=== PATIENT | female | born 1990 | race Caucasian/White ===

== ENCOUNTER 2017-03-21 16:08 | Outpatient (CLI) | payer MEDICAID ==
[~2017-03-21] VITALS: Ht 160 cm; Wt 76.9 kg
[~2017-03-21 16:08] MED LIST: IBUP-1542 PO; PREN1TAB49 PO
[2017-03-21 16:18] VITALS: Ht 160 cm; Wt 76.9 kg
[2017-03-21 16:19] VITALS: RESP 19
[2017-03-21] MEDS: LACTATED RINGER'S 1,000 ML IV SCH ×2 (16:46→19:42)
[2017-03-21] MEDS ORDERED: TERBUTALINE 1 ML ONE (16:50)
[2017-03-21] MEDS ORDERED: TERBUTALINE 1 MG/ML INJ SC ONE ×2 (17:00→18:30)
[2017-03-21 17:21] LABS: ABNORMAL IP MESSAGE 1; BASOPHILS % 0.4 % (0.0-2.0); EOSINOPHILS # 0.1 10^3/ul (0.0-0.5); EOSINOPHILS % 0.6 % (0.0-7.0); HEMATOCRIT 33.2 % (37.0-47.0); HEMOGLOBIN 11.2 g/dl (12.0-16.0); LYMPHOCYTES % 24.8 % (15.0-51.0); MEAN CORPUSCULAR HEMOGLOBIN 29.5 pg (29.0-33.0); MEAN CORPUSCULAR HGB CONC 33.7 g/dl (32.0-37.0); MEAN CORPUSCULAR VOLUME 87.4 fl (82.0-101.0); MEAN PLATELET VOLUME 12.8 fl (7.4-10.4); MONOCYTE # 0.5 10^3/ul (0.3-0.9); MONOCYTES % 5.8 % (0.0-11.0); NEUTROPHIL # 5.4 10^3/ul (1.6-7.5); NEUTROPHILS % 67.9 % (39.0-77.0); PLATELET COUNT 100 10^3/UL (140-415); RED CELL DISTRIBUTION WIDTH 14.4 % (11.5-14.5)
[2017-03-21 17:23] LABS: ADD UMIC NO; UR ASCORBIC ACID NEGATIVE (NEGATIVE); UR BILIRUBIN (Dip) NEGATIVE (NEGATIVE); UR BLOOD (Dip) NEGATIVE (NEGATIVE); UR CLARITY CLEAR (CLEAR); UR COLOR YELLOW (YELLOW); UR GLUCOSE (Dip) NEGATIVE (NEGATIVE); UR KETONES (Dip) 1+ mg/dL (NEGATIVE); UR LEUKOCYTE ESTERASE (Dip) NEGATIVE Leu/ul (NEGATIVE); UR NITRITE (Dip) NEGATIVE (NEGATIVE); UR SPECIFIC GRAVITY (Dip) 1.027 (1.003-1.030); UR TOTAL PROTEIN (Dip) NEGATIVE (NEGATIVE); UR UROBILINOGEN (Dip) NEGATIVE (NEGATIVE)
[2017-03-21 17:24] LABS: POSITIVE DIFF @See below
[2017-03-21] MEDS ORDERED: BETAMET NA PHOS/AC(6 MG/ML) 5ML INJ IM ONE (18:30)
--- NOTE | 2017-03-21 21:00 | PN ---
Triage Information Date/Time 03/21/17 Reason for visit: Uterine contractions Weeks of Gestation 35w2d /Para Diabetes: none Hypertention: none Additional information tachycardia at the clinic Objective Vital Signs Date Time Temp Pulse Resp B/P Pulse Ox O2 Delivery O2 Flow Rate FiO2 03/21/17 16:19 98.2 77 19 99 Room Air Heart Rate: 140's Contractions: >10 Minutes Apart Exam VE 1/long/high Results/Medications Result Diagram: 03/21/17 1650 Results 24 hrs Laboratory Tests Test 03/21/17 16:50 03/21/17 17:00 White Blood Count 8.0 # Red Blood Count 3.80 L Hemoglobin 11.2 L Hematocrit 33.2 L Mean Corpuscular Volume 87.4 Mean Corpuscular Hemoglobin 29.5 Mean Corpuscular Hemoglobin Concent 33.7 Red Cell Distribution Width 14.4 Platelet Count 100 L Mean Platelet Volume 12.8 H Neutrophils % 67.9 Lymphocytes % 24.8 Monocytes % 5.8 Eosinophils % 0.6 Basophils % 0.4 Nucleated Red Blood Cells % 0.0 Neutrophils # 5.4 Lymphocytes # 2.0 Monocytes # 0.5 Eosinophils # 0.1 Basophils # 0.0 Nucleated Red Blood Cells # 0.0 Urine Color YELLOW Urine Clarity CLEAR Urine pH 6.0 Urine Specific [place] 1.027 Urine Ketones 1+ H Urine Nitrite NEGATIVE Urine Bilirubin NEGATIVE Urine Urobilinogen NEGATIVE Urine Leukocyte Esterase NEGATIVE Urine Hemoglobin NEGATIVE Urine Glucose NEGATIVE Urine Total Protein NEGATIVE Medications Current Medications Lactated Ringer's (Lr) 1,000 ml @ 250 mls/hr Q4H IV Last administered on 03/21t 19:42; Admin Dose 250 MLS/HR; Start 03/21/17 at 16:40 Disposition: Discharge Assessment/Plan IUP 35w2d tachycardia resolved PTL PLAN RTH for 2nd dose of BMZ tomorrow increase fluid intake rest TAMANNA HUSSEIN MD Mar 21, 2017 21:00
--- NOTE | 2017-03-22 00:21 | TRIAGE ---
OB Triage Datetime Report Generated by CPN: 03/22/2017 00:21 Datetime: 03/21/2017 20:00 Labor Evaluation Frequency: IRREGULAR Monitor Mode: External Duration (sec)2399: 60 Quality: Mild Pattern: Normal: <= 5 Contractions in 10 Minutes Resting Tone [place]: Relaxed Heart Rate FHR Baseline Rate: 145 Monitor Mode: External US FHR Baseline Changes: No Baseline Change Variability: Moderate 6-25 bpm Accelerations: 15X15 Decelerations: None Category: Category I Datetime: 03/21/2017 19:14 Assessment Type: Triage Maternal Assessment Level of Consciousness: Fully Conscious DTR's/Clonus: DTRs 2+; No Clonus Headache: Denies Blurred Vision: No Respiratory Effort: Unlabored; Regular Rhythm; Equal Expansion Breath Sounds, Left: Clear and Equal Breath Sounds, Right: Clear and Equal Nausea/Vomiting: Denies RUQ Epigastric Pain: Denies Lower Extremities Edema: None Degree: None Upper Extremities Edema: None Degree: None Facial Edema: None Fall Risk Assessment History of Falling: (0) No Secondary Diagnosis: (0) No Ambulatory Aid: (0) Bedrest/Nurse Assist IV Therapy: (0) No Gait: (0) Normal/Bedrest/Immobile Mental Status: (0) Oriented to Own Ability Fall Score: 0 Fall Risk Score Definition: No Risk: No action required Pain Assessment Pain Scale: 2 Pain Presence: Intermittent Pain Type: Contraction Pain Location: Abdomen Pain Relief Measures: Comfort Measures Datetime: 03/21/2017 19:13 Stage of : OB Triage Maternal Assessment Level of Consciousness: Fully Conscious DTR's/Clonus: DTRs 1+ Headache: Denies Breath Sounds, Left: Clear and Equal Breath Sounds, Right: Clear and Equal Nausea/Vomiting: Denies RUQ Epigastric Pain: Denies Labor Evaluation Frequency: NONE Monitor Mode: External Resting Tone [place]: Relaxed Heart Rate FHR Baseline Rate: 135 Monitor Mode: External US Variability: Moderate 6-25 bpm Accelerations: 15X15 Decelerations: None Category: Category I Pain Assessment Pain Scale: 0 Pain Presence: None/Denies Pain Type: N/A Pain Goal: 3 Vaginal Exam Membrane Status: Intact Datetime: 03/21/2017 18:40 Stage of : OB Triage Maternal Assessment Level of Consciousness: Fully Conscious DTR's/Clonus: DTRs 1+ Headache: Denies Breath Sounds, Left: Clear and Equal Breath Sounds, Right: Clear and Equal Nausea/Vomiting: Denies RUQ Epigastric Pain: Denies Labor Evaluation Frequency: IRREGULAR Monitor Mode: External Duration (sec)2399: 40-50 Quality: Mild Pattern: Normal: <= 5 Contractions in 10 Minutes Resting Tone [place]: Relaxed Heart Rate FHR Baseline Rate: 135 Monitor Mode: External US Variability: Moderate 6-25 bpm Accelerations: 15X15 Decelerations: None Category: Category I Pain Assessment Pain Scale: 3 Pain Presence: Intermittent Pain Type: Cramping Pain Location: Back Pain Goal: 3 Vaginal Exam Membrane Status: Intact Datetime: 03/21/2017 18:20 Stage of : OB Triage Datetime: 03/21/2017 17:40 Stage of : OB Triage Maternal Assessment Level of Consciousness: Fully Conscious DTR's/Clonus: DTRs 1+ Headache: Denies Breath Sounds, Left: Clear and Equal Breath Sounds, Right: Clear and Equal Nausea/Vomiting: Denies RUQ Epigastric Pain: Denies Labor Evaluation Frequency: NONE Monitor Mode: External Resting Tone [place]: Relaxed Heart Rate FHR Baseline Rate: 135 Monitor Mode: External US Variability: Moderate 6-25 bpm Accelerations: 15X15 Decelerations: None Category: Category I Pain Assessment Pain Scale: 0 Pain Goal: 3 Vaginal Exam Membrane Status: Intact Datetime: 03/21/2017 16:46 Stage of : OB Triage Datetime: 03/21/2017 16:40 Stage of : OB Triage Maternal Assessment Level of Consciousness: Fully Conscious DTR's/Clonus: DTRs 1+ Headache: Denies Blurred Vision: No Respiratory Effort: Unlabored Breath Sounds, Left: Clear and Equal Breath Sounds, Right: Clear and Equal Nausea/Vomiting: Denies RUQ Epigastric Pain: Denies Facial Edema: None Labor Evaluation Frequency: 4-5 Monitor Mode: External Duration (sec)2399: 50-70 Quality: Mild Pattern: Normal: <= 5 Contractions in 10 Minutes Resting Tone [place]: Relaxed Heart Rate FHR Baseline Rate: 135 Monitor Mode: External US Variability: Moderate 6-25 bpm Accelerations: 15X15 Decelerations: None Category: Category I Pain Assessment Pain Scale: 5 Pain Presence: Intermittent Pain Type: Contraction Pain Location: Back Pain Goal: 3 Pain Relief Measures: Comfort Measures Vaginal Exam Membrane Status: Intact Datetime: 03/21/2017 16:16 EGA: 35.2 Datetime: 03/21/2017 16:08 Stage of : OB Triage Assessment Type: Triage Maternal Assessment Level of Consciousness: Fully Conscious DTR's/Clonus: DTRs 2+; No Clonus Headache: Denies Blurred Vision: No Respiratory Effort: Unlabored; Regular Rhythm; Equal Expansion Breath Sounds, Left: Clear and Equal Breath Sounds, Right: Clear and Equal Nausea/Vomiting: Denies RUQ Epigastric Pain: Denies Lower Extremities Edema: None Degree: None Upper Extremities Edema: None Degree: None Facial Edema: None Fall Risk Assessment History of Falling: (0) No Secondary Diagnosis: (0) No Ambulatory Aid: (0) Bedrest/Nurse Assist IV Therapy: (0) No Gait: (0) Normal/Bedrest/Immobile Mental Status: (0) Oriented to Own Ability Fall Score: 0 Fall Risk Score Definition: No Risk: No action required Datetime: 03/21/2017 15:59 Time of Arrival: 03/21/2017 15:59 Arrived By: Ambulatory Arrived From: Home Chief Complaint: PT CAME IN FROM CLINIC TO R/O PTL AND TACHYCARDIA Movement: Present Contractions: Denies/Absent Rupture of Membranes: Denies Vaginal Bleeding: None Vaginal Discharge: Denies Recent Sexual Intercouse: Denies Abdominal Trauma: Not Applicable Additional Patient Complaints: NONE Initial Plan: NST AND BPP ve and iv hydration (Annotations: Data stored by CPN on behalf of user)
== END 2017-03-21 20:33 | disposition home or self-care (01) ==
LOC: OBT 16:08 → L-D 16:11 → OBT 20:33
PROVIDERS: ATTEND Obstetrics & Gynecology
DX: O76 Abnormality in fetal heart rate and rhythm complicating labor and delivery (principal); Z3A.35 35 weeks gestation of pregnancy
CPT/HCPCS: 36415; 81003; 85025; 96361; 96372; J0702; J3105; J7120; Z7500; G0463

== ENCOUNTER 2017-03-22 18:44 | Outpatient (CLI) | payer MEDICAID ==
[~2017-03-22] VITALS: Ht 160 cm; Wt 78.8 kg
[2017-03-22 19:05] VITALS: BP 111/67; PULSE 95; RESP 18; Ht 160 cm; Wt 78.8 kg
[2017-03-22] MEDS ORDERED: BETAMET NA PHOS/AC(6 MG/ML) 5ML INJ IM ONE (19:30)
--- NOTE | 2017-03-22 19:38 | RADRPT ---
PROCEDURE: OB ultrasound for biophysical profile CLINICAL INDICATION: Contractions. TECHNIQUE: Multiple sonographic images of the gravid uterus performed. The images were reviewed on a PACS workstation. COMPARISON: 12/14/2016 FINDINGS: A single live intrauterine is identified with heart rate of 168 bpm. Fet us is in a cephalic presentation. Placenta is located fundal. Biophysical profile: breathing movement = 2/2 tone = 2/2 motion = 2/2 EL = 2/2 EL = 12.82 cm. IMPRESSION: 1. Single live intrauterine gestation. 2. Biophysical profile = 8/8. 3. EL = 12.82 cm. RPTAT: HMVK .Bret Swan MD, Date Time Electronically viewed and signed by .Bret Swan MD, MD on 03/22/2017 19:38 .K/
--- NOTE | 2017-03-22 20:15 | TRIAGE ---
OB Triage Datetime Report Generated by CPN: 03/22/2017 20:15 Datetime: 03/22/2017 19:01 Assessment Type: Triage Level of Consciousness: Fully Conscious DTR's/Clonus: DTRs 2+; No Clonus Headache: Denies Blurred Vision: No Respiratory Effort: Unlabored; Regular Rhythm; Equal Expansion Breath Sounds, Left: Clear and Equal Breath Sounds, Right: Clear and Equal Nausea/Vomiting: Denies RUQ Epigastric Pain: Denies Lower Extremities Edema: None Degree: None Upper Extremities Edema: None Degree: None Facial Edema: None History of Falling: (0) No Secondary Diagnosis: (0) No Ambulatory Aid: (0) Bedrest/Nurse Assist IV Therapy: (0) No Gait: (0) Normal/Bedrest/Immobile Mental Status: (0) Oriented to Own Ability Fall Score: 0 Fall Risk Score Definition: No Risk: No action required Datetime: 03/22/2017 19:00 Monitor Mode: External Monitor Mode: External US Datetime: 03/22/2017 18:59 Time of Arrival: 03/22/2017 18:35 EGA: 35.3 Arrived By: Ambulatory Arrived From: Home Chief Complaint: pt here for NST/BPP AND SECOND DOSE OF BETAMETHSONE Movement: Present Contractions: Denies/Absent Rupture of Membranes: Denies Vaginal Bleeding: None Vaginal Discharge: Denies Recent Sexual Intercouse: Denies Abdominal Trauma: Not Applicable Patient Complaints: None Time Provider Notified: 03/22/2017 19:03 Provider Notified: LAVERNE Initial Plan: NST/BPP/BETA Datetime: 03/21/2017 15:59 Patient Complaints: None
--- NOTE | 2017-03-22 22:09 | PN ---
Triage Information Date/Time March 22, 2017 Reason for visit: Received a second dose of steroids Weeks of Gestation 35 weeks and 3 days /Para 3 para 2 Diabetes: none Hypertention: none Additional information 26-year-old with IUP at 35 weeks and 3 days here today to receive a second dose of steroid shot due to risk of labor. Patient presented yesterday with complaint of contractions. Has been ruled out for labor. Received the first dose of steroid. Here today for second shot. She denies any cramps, decreased movement, vaginal bleeding or any other complaint. Objective Vital Signs Date Time Temp Pulse Resp B/P Pulse Ox O2 Delivery O2 Flow Rate FiO2 03/22/17 19:05 98.7 95 18 111/67 98 Room Air Heart Rate: 130's Heart Rate Comments Category 1 and reactive Exam General appearance: Alert and oriented 4. Does not appear to be in any acute distress Abdomen: Soft, gravid, fundal height consistent with gestational age Eczematous: No calf tenderness, no click no edema NST: Category 1. Reactive Contractions seen on the monitor BPP: 11/29 EL: 12.82 Results/Medications Imaging Results PROCEDURE: OB ultrasound for biophysical profile CLINICAL INDICATION: Contractions. TECHNIQUE: Multiple sonographic images of the gravid uterus performed. The images were reviewed on a PACS workstation. COMPARISON: 12/14/2016 FINDINGS: A single live intrauterine is identified with heart rate of 168 bpm. Fetus is in a cephalic presentation. Placenta is located fundal. Biophysical profile: breathing movement = 2/2 tone = 2/2 motion = 2/2 EL = 2/2 EL = 12.82 cm. IMPRESSION: 1. Single live intrauterine gestation. 2. Biophysical profile = 8/8. 3. EL = 12.82 cm. RPTAT: HMVK Disposition: Discharge Assessment/Plan IUP at 35 weeks and 3 days False labor pain resolved Today for second dose of steroid shot testing reassuring DC home Receive second dose Follow-up with OB office in 2-3 days or sooner as needed Return to triage as needed decreased movement, contractions or any other concerns SARA REYES MD Mar 22, 2017 22:09
== END 2017-03-22 22:23 | disposition home or self-care (01) ==
LOC: OBT 18:44 → L-D 18:45 → OBT 22:23
PROVIDERS: ATTEND Obstetrics & Gynecology
DX: O47.03 False labor before 37 completed weeks of gestation, third trimester (principal); Z3A.35 35 weeks gestation of pregnancy
CPT/HCPCS: 76818; J0702; G0463

== ENCOUNTER 2017-04-14 16:34 | Inpatient (IN) | payer MEDICAID, OTHER ==
[~2017-04-14] VITALS: Ht 160 cm; Wt 78.3 kg
[~2017-04-14 16:34] MED LIST changes: -IBUP-1542 PO
[2017-04-14 17:00] VITALS: Ht 160 cm; Wt 78.3 kg
[2017-04-14 17:01] VITALS: BP 118/69; PULSE 84; RESP 18
[2017-04-14] MEDS ORDERED: METHYLERGONOVINE 0.2 MG INJ IM PRN (17:30)
[2017-04-14] MEDS ORDERED: OXYTOCIN 30 UNITS/LR 500 ML IV SCH ×2 (17:30)
[2017-04-14] MEDS ORDERED: MISOPROSTOL 200 MCG TAB PR PRN (17:30)
[2017-04-14] MEDS ORDERED: OXYTOCIN 30 UNITS/LR 500 ML IV PRN (17:30)
[2017-04-14] MEDS ORDERED: LIDOCAINE 1% (MPF) 30 ML INJ INJ PRN (17:30)
[2017-04-14] MEDS ORDERED: CARBOPROST 250 MCG INJ IM PRN (17:30)
[2017-04-14] MEDS ORDERED: BUTORPHANOL 2 MG INJ IV PRN ×2 (17:30)
[2017-04-14] MEDS ORDERED: AMPICILLIN 2 GM/NS (PMX) 100 ML IV ONE (17:30)
[2017-04-14 18:07] LABS: ABNORMAL IP MESSAGE 1; BASOPHILS % 0.2 % (0.0-2.0); EOSINOPHILS # 0.1 10^3/ul (0.0-0.5); EOSINOPHILS % 0.6 % (0.0-7.0); HEMATOCRIT 36.7 % (37.0-47.0); LYMPHOCYTES # 1.7 10^3/ul (0.8-2.9); LYMPHOCYTES % 21.6 % (15.0-51.0); MEAN CORPUSCULAR HGB CONC 32.7 g/dl (32.0-37.0); MEAN CORPUSCULAR VOLUME 85.7 fl (82.0-101.0); MEAN PLATELET VOLUME 13.5 fl (7.4-10.4); MONOCYTE # 0.3 10^3/ul (0.3-0.9); MONOCYTES % 4.2 % (0.0-11.0); NEUTROPHIL # 5.9 10^3/ul (1.6-7.5); NEUTROPHILS % 72.9 % (39.0-77.0); PLATELET COUNT 122 10^3/UL (140-415); POSITIVE DIFF @See below; RED BLOOD COUNT 4.28 10^6/ul (4.20-5.40); RED CELL DISTRIBUTION WIDTH 15.1 % (11.5-14.5); WHITE BLOOD COUNT 8.1 10^3/ul (4.8-10.8)
[2017-04-14 18:21] LABS: INR 0.86; PARTIAL THROMBOPLASTIN TIME 24.5 Sec (25.0-35.0); PROTIME 11.8 Sec (11.9-14.9); PT RATIO 0.9
[2017-04-14] MEDS: LACTATED RINGER'S 1,000 ML IV SCH ×2 (18:24→23:04)
[2017-04-14] MEDS ORDERED: AMPICILLIN 1 GM/NS (PMX) 50 ML IV SCH (21:30)
[2017-04-15] MEDS ORDERED: FENTAnyl 2MCG/ML-ROPIV 0.2% 100 ML ONE (02:05)
[2017-04-15] MEDS: LACTATED RINGER'S 1,000 ML IV SCH (02:09)
[2017-04-15] MEDS ORDERED: FENTAnyl 2MCG/ML-ROPIV 0.2% 100 ML BAG EPI SCH (02:30)
[2017-04-15] MEDS ORDERED: ONDANSETRON 4 MG INJ IV PRN (02:30)
[2017-04-15] MEDS ORDERED: DIPHENHYDRAMINE 50 MG INJ IV PRN (02:30)
[2017-04-15] MEDS ORDERED: NALOXONE (0.4 MG/ML) INJ IV PRN (02:30)
[2017-04-15] MEDS ORDERED: OXYTOCIN 30 UNITS/LR 500 ML IV SCH (05:24)
[2017-04-15] MEDS ORDERED: LACTATED RINGER'S 1,000 ML IV* SCH (05:24)
--- NOTE | 2017-04-15 05:24 | LDN ---
Date/Time of Note Date/Time of Note DATE: 04/15/17 TIME: 05:22 Delivery Summary Weeks of Gestation 38w 6d Placenta Delivered: Spontaneously Laceration repair: 1st degree perineal and periurethral laceration repaired with 4-0 chromic Anesthesia type: Epidural Estimated blood loss: 200 Sponge & Needle done & correct: Yes All needle counts correct: Yes Any foreign bodies felt in the: No Problems: Delivery Information Sex Infant Sex: female Apgars 1 Minute: 8 5 Minute: 9 Suctioning Nose & mouth suctioned at jordan: Yes Umbilical Cord Umbilical cord with: 3 Vessels Cord presentations: nuchal cord Cord Blood was obtained: Yes Mother & Baby Disposition Disposition Mom & Baby to Maternity; Good: Yes RAMAN MCKOY Apr 15, 2017 05:24
[2017-04-15] MEDS ORDERED: CARBOPROST 250 MCG INJ IM PRN (05:30)
[2017-04-15] MEDS ORDERED: DIBUCAINE 1% 30 GM OINT PR PRN (05:30)
[2017-04-15] MEDS ORDERED: HYDROCODONE/APAP (5/325) TAB PO PRN ×2 (05:30)
[2017-04-15] MEDS ORDERED: BENZOCAINE 20% 56 ML SPRAY TOP PRN (05:30)
[2017-04-15] MEDS ORDERED: WITCH HAZEL/GLYCERIN PAD PR PRN (05:30)
[2017-04-15] MEDS ORDERED: OXYTOCIN 30 UNITS/LR 500 ML IV PRN (05:30)
[2017-04-15] MEDS ORDERED: METHYLERGONOVINE 0.2 MG INJ IM PRN (05:30)
[2017-04-15] MEDS ORDERED: MISOPROSTOL 200 MCG TAB PR PRN (05:30)
[2017-04-15] MEDS ORDERED: LANOLIN 7 GM TUBE TOP PRN (05:30)
[2017-04-15 08:45] VITALS: BP 126/89; PULSE 70; RESP 19
[2017-04-15] MEDS: IBUPROFEN 600 MG TAB PO SCH ×3 (09:09→18:23)
[2017-04-15 12:00] VITALS: BP 120/64; PULSE 73; RESP 18
--- NOTE | 2017-04-15 14:56 | HP ---
Date/Time of Note Date/Time of Note DATE: 04/15/17 TIME: 14:54 OB - History Hx of Present Free Text/Dictation Admitted at 38+ weeks in early labor Last Menstrual Period: Jul 01, 2016 Estimated Due Date: Apr 23, 2017 : 3 Para: 2 Care: Good Care Ultrasounds: Normal mid trimester US Obstetrical Complications: None Past Family/Social History * Past Medical, Surgical, Family and Obstetric Histories reviewed from chart. Blood Type: O+ Rubella: unknown RPR/VDRL: Negative GBS Status: Unknown HBsAG: Negative OB Admission Exam Vital Signs Vital Signs Vital Signs Date Time Temp Pulse Resp B/P Pulse Ox O2 Delivery O2 Flow Rate FiO2 04/15/17 12:00 97.9 73 18 120/64 Room Air Physical Exam HEENT: WNL Heart: Rhythm Normal Lungs: Clear, Equal Abdomen: WNL Extremities: Normal Reflexes: Normal Cervical Dilatation: 3cm Effacement: 75% Station: -3 Membranes: Intact Heart Rate: 140's Accelerations: Accelerations Present Decelerations: No Decelerations Varibility: Marked Contractions on Admission: 6-10 Minutes Apart Date/Time Contractions Began: 04/14/2017 at 10:00 in the morning Frequency of Contractions: Every 5-10 minutes Duration: Over 60 seconds Intensity: Mild Last 72 hours Lab Results CBC & BMP 04/14/17 17:40 OB Assessment/Plan Other Assessment: Term gestation Labor pain Plan: Expectant Management Other plan: Proceed with spontaneous labor PATRICIA OLIVEROS MD Apr 15, 2017 14:56
[2017-04-15] MEDS ORDERED: CEPHALEXIN 500 MG CAP PO SCH (15:00)
--- NOTE | 2017-04-15 15:00 | DS ---
Date/Time of Note Date/Time of Note Home next day DATE: 04/15/17 TIME: 14:58 Obstetrical Discharge Record Final Diagnosis Final Diagnosis: Term delivered Other Final Diagnosis Status post vaginal delivery Vaginal Delivery Obstetrical Delivery: Spontaneous, Laceration, Repaired Condition on Discharge Physical Assessment Last Vitals: See nurse's notes Voiding: Yes Bowel Movement: Yes Breast: Soft, non-tender, Filling Fundus: Firm Abdomen and Incision: Abdomen is soft bowel sounds present Fundus is firm at the U Episiotomy: Not applicable Calf Tenderness: No Patient Condition: Good PATRICIA OLIVEROS MD Apr 15, 2017 15:00
[2017-04-15] MEDS ORDERED: IBUP-1542 PO (15:01)
--- NOTE | 2017-04-15 15:01 | PD.PPDC ---
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
[2017-04-15 15:50] VITALS: BP 124/82; PULSE 79; RESP 16
[2017-04-15 19:20] VITALS: BP 116/77; PULSE 88; RESP 20
[2017-04-15] MEDS: CEPHALEXIN 500 MG CAP PO SCH (19:42)
[2017-04-16] MEDS: CEPHALEXIN 500 MG CAP PO SCH ×3 (00:03→12:04)
[2017-04-16] MEDS: IBUPROFEN 600 MG TAB PO SCH ×3 (00:03→12:04)
[2017-04-16 04:00] VITALS: BP 140/74; PULSE 72; RESP 19
[2017-04-16 08:00] VITALS: BP 101/53; PULSE 77; RESP 16
[2017-04-16 08:47] LABS: ABNORMAL IP MESSAGE 1; BASOPHILS % 0.3 % (0.0-2.0); EOSINOPHILS # 0.1 10^3/ul (0.0-0.5); HEMATOCRIT 30.5 % (37.0-47.0); HEMOGLOBIN 9.6 g/dl (12.0-16.0); LYMPHOCYTES % 30.9 % (15.0-51.0); MEAN CORPUSCULAR HEMOGLOBIN 27.4 pg (29.0-33.0); MEAN CORPUSCULAR HGB CONC 31.5 g/dl (32.0-37.0); MEAN CORPUSCULAR VOLUME 87.1 fl (82.0-101.0); MEAN PLATELET VOLUME 13.2 fl (7.4-10.4); MONOCYTE # 0.4 10^3/ul (0.3-0.9); MONOCYTES % 5.7 % (0.0-11.0); NEUTROPHIL # 3.9 10^3/ul (1.6-7.5); NEUTROPHILS % 60.6 % (39.0-77.0); PLATELET COUNT 107 10^3/UL (140-415); RED CELL DISTRIBUTION WIDTH 15.3 % (11.5-14.5); WHITE BLOOD COUNT 6.5 10^3/ul (4.8-10.8)
[2017-04-16 08:53] LABS: POSITIVE DIFF @See below
[2017-04-16] MEDS ORDERED: INFLUENZA VIRUS VACCINE 0.5 ML (DISPENSING) IM* ONE (09:00)
[2017-04-17] MEDS ORDERED: MEASLES,MUMPS,RUBELLA VACCINE INJ SC* ONE (09:00)
[2017-04-17] MEDS ORDERED: VARICELLA VACCINE LIVE/PF 1,350 UNIT/0.5 ML ML SC* ONE (09:00)
[2017-04-17] MEDS ORDERED: DIPHTH/TET/ACEL PERTUSS (ADULT) 0.5 ML VIAL IM* ONE (09:00)
== END 2017-04-16 15:49 | disposition home or self-care (01) | DRG 775 ==
LOC: OBT 16:34 → L-D 16:35 → OBT 17:10 → L-D 17:10 → PP1 04-15 08:43
PROVIDERS: ADMIT Obstetrics & Gynecology; ATTEND Obstetrics & Gynecology
PROC: 10E0XZZ Delivery of Products of Conception, External Approach (ICD-10-PCS; principal; 2017-04-15)
PROC: 0HQ9XZZ Repair Perineum Skin, External Approach (ICD-10-PCS; 2017-04-15)
PROC: 0UQMXZZ Repair Vulva, External Approach (ICD-10-PCS; 2017-04-15)
DX: O70.0 First degree perineal laceration during delivery (principal); O69.81X0 Labor and delivery complicated by cord around neck, without compression, not applicable or unspecified; O71.82 Other specified trauma to perineum and vulva; Z3A.38 38 weeks gestation of pregnancy; Z37.0 Single live birth
CPT/HCPCS: 62319; 84112; 85025; 85610; 85730; 86592; 86900; 86901; 87340; 90686; 99464; G0463; J0290; J2590; J3010; J7120

== ENCOUNTER 2018-03-15 23:52 | Outpatient (CLI) | END 2018-03-16 05:20 | disposition home or self-care (01) ==

== ENCOUNTER 2018-03-17 02:52 | Outpatient (CLI) | END 2018-03-17 04:33 | disposition home or self-care (01) ==

== ENCOUNTER 2018-03-20 18:11 | Outpatient (CLI) | END 2018-03-20 23:38 | disposition home or self-care (01) ==

== ENCOUNTER 2018-04-13 09:26 | Inpatient (IN) | END 2018-04-15 17:34 | disposition home or self-care (01) | DRG 807 ==